=== PATIENT | male | born 1990 | race Native Hawaiian/Other Pacific Islander ===

== ENCOUNTER 2017-01-13 15:24 | Emergency (ER) | payer OTHER ==
[2017-01-13 15:30] VITALS: BP 136/87; PULSE 72; RESP 16; TEMP 96.4; O2SAT 99
--- NOTE | 2017-01-13 16:27 | ED PDOC ---
Lower Extremity Pain/Injury Time Seen by Provider: 01/13/17 16:16 Chief Complaint (Nursing): Lower Extremity Problem/Injury Chief Complaint (Provider): plantar warts History Per: Patient History/Exam Limitations: no limitations Additional Complaint(s): 26yo M in ED for eval plantar warts to b/l feet-has tried lotrimin but not effective. no pain no drainage. Past Medical History Reviewed: Historical Data, Nursing Documentation, Vital Signs Vital Signs: Last Vital Signs Temp 96.4 F L 01/13/17 15:27 Pulse 72 01/13/17 15:27 Resp 16 01/13/17 15:27 BP 136/87 01/13/17 15:27 Pulse Ox 99 01/13/17 15:27 - Medical History PMH: No Chronic Diseases - Family History Family History: States: Unknown Family Hx - Home Medications Home Medications: Ambulatory Orders Medication Instructions Recorded Meclizine [Meclizine*] 25 mg PO Q8 #15 tab 05/07/16 Salicylic Acid [Compound W] 1 - 2 gm TP DAILY #1 gel..gram. 01/13/17 Salicylic Acid [Compound W] 1 ml TP DAILY #9 liq 01/13/17 - Allergies Allergies/Adverse Reactions: Allergies Allergy/AdvReac Type Severity Reaction Status Date / Time No Known Allergies Allergy Verified 05/07/16 14:32 Review of Systems ROS Statement: Except As Marked, All Systems Reviewed And Found Negative Musculoskeletal: Positive for: Foot Pain Physical Exam - Reviewed Nursing Documentation Reviewed: Yes Vital Signs Reviewed: Yes - Physical Exam Appears: Positive for: Well, Non-toxic, No Acute Distress Skin: Positive for: Normal Color, Warm, DRY Cardiovascular/Chest: Positive for: Regular Rate, Rhythm Respiratory: Positive for: CNT, Normal Breath Sounds Extremity: Positive for: Other (foot: b/l warts noted small. ) Neurologic/Psych: Positive for: Alert, Oriented - ECG O2 Sat by Pulse Oximetry: 99 Medical Decision Making Medical Decision Making: dx: warts Rx: VErrugin and compound W freeze off with f/u with pmf Disposition - Clinical Impression Clinical Impression: Wart - Patient ED Disposition Is Patient to be Admitted: No Counseled Patient/Family Regarding: Studies Performed, Diagnosis, Need For Followup, Rx Given - Disposition Referrals: [facility] [Outside] Disposition: Routine/Home Disposition Time: 16:31 Condition: STABLE Prescriptions: Salicylic Acid [Compound W] 1 - 2 gm TP DAILY #1 gel..gram. Salicylic Acid [Compound W] 1 ml TP DAILY #9 liq Instructions: Common Wart (ED)
== END 2017-01-13 16:45 | disposition home or self-care (01) ==
LOC: H.ER 15:24
DX: B07.9 Viral wart, unspecified (principal)

== ENCOUNTER 2017-02-11 21:59 | Emergency (ER) | payer OTHER ==
[2017-02-11 22:19] VITALS: BP 151/87; PULSE 67; RESP 19; TEMP 98.3; O2SAT 100
[2017-02-11] MEDS ORDERED: Lidocaine 1% Inj (20ml) IJ ONE (22:55)
[2017-02-11] MEDS ORDERED: Lidocaine 1% Inj (20ml) ONE (23:05)
--- NOTE | 2017-02-11 23:15 | ED PDOC ---
HPI: Trauma/Fall - HPI Time Seen by Provider: 02/11/17 22:52 Chief Complaint (Nursing): Abnormal Skin Integrity Chief Complaint (Provider): Abnormal Skin Integrity History Per: Patient History/Exam Limitations: no limitations Onset/Duration Of Symptoms: Days (x1) Additional Complaint(s): Alyson Leone is a 26 year old male with no significant past medical history who presents to the ED complaining of pain to the left periorbital region and a small laceration to his left orbital rim sustained prior to arrival. Patient states he tripped at home, falling and injuring the left side of his face when his glasses broke. Denies change in vision, headache, nausea, or neck pain. Patient states his last Tetanus is unknown. PMD: Non-[facility] Provider Past Medical History Reviewed: Historical Data, Nursing Documentation, Vital Signs Vital Signs: Last Vital Signs Temp 98.3 F 02/11/17 22:15 Pulse 67 02/11/17 22:15 Resp 19 02/11/17 22:15 BP 151/87 H 02/11/17 22:15 Pulse Ox 100 02/12/17 00:26 - Medical History PMH: No Chronic Diseases - Surgical History Surgical History: No Surg Hx - Family History Family History: States: Unknown Family Hx - Immunization History Hx Tetanus Toxoid Vaccination: No - Home Medications Home Medications: Ambulatory Orders Medication Instructions Recorded Meclizine [Meclizine*] 25 mg PO Q8 #15 tab 05/07/16 Salicylic Acid [Compound W] 1 - 2 gm TP DAILY #1 gel..gram. 01/13/17 Salicylic Acid [Compound W] 1 ml TP DAILY #9 liq 01/13/17 - Allergies Allergies/Adverse Reactions: Allergies Allergy/AdvReac Type Severity Reaction Status Date / Time No Known Allergies Allergy Verified 05/07/16 14:32 Review of Systems Eyes: Negative for: Vision Change Gastrointestinal: Negative for: Nausea Musculoskeletal: Negative for: Neck Pain Neurological: Negative for: Headache, Other Physical Exam - Reviewed Nursing Documentation Reviewed: Yes Vital Signs Reviewed: Yes - Physical Exam Appears: Positive for: Well, Non-toxic, No Acute Distress Head Exam: Positive for: ATRAUMATIC, NORMAL INSPECTION, NORMOCEPHALIC Skin: Positive for: Normal Color, Warm, Dry Eye Exam: Positive for: PERRL. Negative for: Normal appearance (2 cm laceration to left orbital rim with mild ecchymosis and edema), Conjunctival injection, Other (hyphema, photophobia, injection) Neck: Positive for: Normal, Painless ROM, Supple Cardiovascular/Chest: Positive for: Regular Rate, Rhythm. Negative for: Murmur Respiratory: Positive for: Normal Breath Sounds. Negative for: Respiratory Distress Gastrointestinal/Abdominal: Positive for: Normal Exam, Bowel Sounds, Soft. Negative for: Tenderness Back: Positive for: Normal Inspection. Negative for: L CVA Tenderness, R CVA Tenderness, Vertebral Tenderness Extremity: Positive for: Normal ROM. Negative for: Pedal Edema, Deformity Neurologic/Psych: Positive for: Alert, Oriented (x3). Negative for: Motor/ Sensory Deficits - ECG O2 Sat by Pulse Oximetry: 100 (RA) Pulse Ox Interpretation: Normal Medical Decision Making Medical Decision Making: Time: 22:55 Plan: --CT Orbits/ facials w/o contrast to rule out fracture --Motrin 600 mg PO --Lidocaine 1% 4 ml IJ --Tetanus 0.5 ml IM --Laceration repair --Reevaluation Time: 23:25 --2 cm simple laceration repair completed with good result. Lidocaine 1% administered and wound irrigated. Procedure tolerated well by patient. Scribe Attestation: Documented by Bello Lucero acting as a scribe for Demetrius Chew DO. Scribe Attestation: All medical record entries made by the Scribe were at my direction and personally dictated by me. I have reviewed the chart and agree that the record accurately reflects my personal performance of the history, physical exam, medical decision making, and the department course for this patient. I have also personally directed, reviewed, and agree with the discharge instructions and disposition. Procedures - Laceration/Wound Repair Left orbital rim Wound Length (cm): 2 Anesthesia: 1% Lidocaine Wound Repaired With: Sutures Suture Size/Type: 5:0, proline Number of Sutures: 2 Wound Complexity: Simple Disposition - Clinical Impression Clinical Impression: Laceration of periorbital area, Facial trauma - Patient ED Disposition Is Patient to be Admitted: Transfer of Care - Disposition Disposition: Transfer of Care Condition: STABLE Additional Instructions: Keep wound clean and dry for 2 days, then warm soapy water 2x daily. SUTURES REQUIRE REMOVAL IN 5-6 DAYS VIA YOUR DOCTOR, URGENT CARE CENTER, OR RETURN TO ER/. Instructions: Facial Laceration (ED) Forms: [employer] (Malay) Patient Signed Over To: Niles Desir Handoff Comments: pending CT result
--- NOTE | 2017-02-12 00:26 | ED PDOC ---
- ECG O2 Sat by Pulse Oximetry: 100 (RA) Medical Decision Making Medical Decision Making: Time: 00:00 --Patient signed over to me by Dr. Demetrius Chew pending CT result 100 CT neg, patient stable for discharge. Return precautions discussed. Scribe Attestation: Documented by Bello Lucero acting as a scribe for Niles Desir MD. Scribe Attestation: All medical record entries made by the Scribe were at my direction and personally dictated by me. I have reviewed the chart and agree that the record accurately reflects my personal performance of the history, physical exam, medical decision making, and the department course for this patient. I have also personally directed, reviewed, and agree with the discharge instructions and disposition. Disposition - Clinical Impression Clinical Impression: Laceration of periorbital area, Facial trauma - POA Present On Arrival: None - Disposition Disposition: Routine/Home Disposition Time: 01:00 Condition: STABLE Additional Instructions: Keep wound clean and dry for 2 days, then warm soapy water 2x daily. SUTURES REQUIRE REMOVAL IN 5-6 DAYS VIA YOUR DOCTOR, URGENT CARE CENTER, OR RETURN TO ER/. Instructions: Facial Laceration (ED) Forms: [employer] (Welsh)
--- NOTE | 2017-02-12 01:03 | CT ---
EXAM: CT Orbits Without Intravenous Contrast EXAM DATE/TIME: 02/11/2017 10:55 PM CLINICAL HISTORY: 26 years old, male; Injury or trauma; Fall; Initial encounter; Laceration; Ocular (eye or eyeball); Left; Without residual foreign body; Injury details: Patient fell on eyeglasses, . left brow lac. ; Additional info: L eye trauma S/P fall TECHNIQUE: Axial computed tomography images of the orbits without intravenous contrast. All CT scans at this facility use one or more dose reduction techniques, viz.: automated exposure control; ma/kV adjustment per patient size (including targeted exams where dose is matched to indication; i.e. head); or iterative reconstruction technique. Coronal and sagittal reformatted images were created and reviewed. COMPARISON: There are no prior studies for comparison. FINDINGS: Soft tissues: There is left periorbital and frontal bruising and hematoma. There is laceration with air in the soft tissues. There is minimal left periorbital edema. Orbits: Globes are intact.Retrobulbar structures are symmetric. Bones/joints: There are no facial bone fractures. There are no orbital fractures. Visualized cervical spine is unremarkable Sinuses: There is minimal mucoperiosteal thickening in right frontal and ethmoid sinuses. Ostiomeatal complexes are patent bilaterally. Maxillary and sphenoid sinuses are unremarkable. Ears and mastoids: Middle ears and mastoids are unremarkable. Salivary glands: Parotid and submandibular glands are unremarkable. Lymph nodes: There is shotty adenopathy. Brain: No focal abnormalities are seen in visualized portion of the brain. Airway: Airway is unremarkable. IMPRESSION: Left facial and periorbital bruising and laceration, intact globe, no fracture Additional findings as described above.
== END 2017-02-12 01:15 | disposition home or self-care (01) ==
LOC: H.ER 21:59
DX: S01.81XA Laceration without foreign body of other part of head, initial encounter (principal); W01.0XXA Fall on same level from slipping, tripping and stumbling without subsequent striking against object, initial encounter

== ENCOUNTER 2017-02-17 14:20 | Emergency (ER) | payer OTHER ==
[2017-02-17 15:13] VITALS: BP 127/80; PULSE 61; RESP 16; TEMP 97.8; O2SAT 96
--- NOTE | 2017-02-17 15:38 | ED PDOC ---
HPI: Wound Care - HPI Time Seen by Provider: 02/17/17 15:30 Chief Complaint (Nursing): Suture/Staple Removal Chief Complaint (Provider): Suture/Staple Removal History Per: Patient Exam Limitations: no limitations Additional Complaint(s): Alyson Leone is a 26 year old male that presents to the ED for suture removal. Patient denies any drainage from the area or any additional complaints. Past Medical History Reviewed: Historical Data, Nursing Documentation, Vital Signs Vital Signs: Last Vital Signs Temp 97.8 F 02/17/17 15:11 Pulse 61 02/17/17 15:11 Resp 16 02/17/17 15:11 BP 127/80 02/17/17 15:11 Pulse Ox 96 02/17/17 15:11 - Family History Family History: States: Unknown Family Hx - Immunization History Hx Tetanus Toxoid Vaccination: No - Home Medications Home Medications: Ambulatory Orders Medication Instructions Recorded Meclizine [Meclizine*] 25 mg PO Q8 #15 tab 05/07/16 Salicylic Acid [Compound W] 1 - 2 gm TP DAILY #1 gel..gram. 01/13/17 Salicylic Acid [Compound W] 1 ml TP DAILY #9 liq 01/13/17 - Allergies Allergies/Adverse Reactions: Allergies Allergy/AdvReac Type Severity Reaction Status Date / Time No Known Allergies Allergy Verified 02/17/17 15:10 Review of Systems ROS Statement: Except As Marked, All Systems Reviewed And Found Negative Constitutional: Positive for: Other (suture removal from left periorbital area) Physical Exam - Reviewed Nursing Documentation Reviewed: Yes Vital Signs Reviewed: Yes - Physical Exam Appears: Positive for: Non-toxic, No Acute Distress Head Exam: Positive for: ATRAUMATIC (Sutures present to left periorbital area), NORMOCEPHALIC Skin: Positive for: Normal Color, Warm Eye Exam: Positive for: EOMI, PERRL. Negative for: Normal appearance ( Ecchymosis to left eye, but is healing well.) Neurologic/Psych: Positive for: Alert, Oriented. Negative for: Motor/Sensory Deficits - ECG O2 Sat by Pulse Oximetry: 96 (RA) Pulse Ox Interpretation: Normal Medical Decision Making Medical Decision Making: Impression: Suture Removal Plan: * Suture Removal Patient tolerated suture removal well, with no immediate complications. Advised patient to place sunscreen and Vitamin E over area to reduce appearance of scarring. Stable for discharge home. Scribe Attestation: Documented by Elva Felix, acting as a scribe for Stewart Gomez PA-C. Provider Scribe Attestation: All medical record entries made by the Scribe were at my direction and personally dictated by me. I have reviewed the chart and agree that the record accurately reflects my personal performance of the history, physical exam, medical decision making, and the department course for this patient. I have also personally directed, reviewed, and agree with the discharge instructions and disposition. Disposition - Clinical Impression Clinical Impression: Removal of suture - Patient ED Disposition Is Patient to be Admitted: No - Disposition Referrals: [facility] [Outside] Disposition: Routine/Home Disposition Time: 15:46 Condition: FAIR Instructions: Stitches Removal (ED) Forms: [employer] (Uzbek)
== END 2017-02-17 16:13 | disposition home or self-care (01) ==
LOC: H.ER 14:20
DX: Z48.02 Encounter for removal of sutures (principal)

== ENCOUNTER 2017-03-18 00:28 | Emergency (ER) | payer OTHER ==
[2017-03-18 00:54] VITALS: RESP 18
[2017-03-18 01:07] VITALS: BP 114/64; PULSE 113; O2SAT 98
[2017-03-18 01:24] VITALS: TEMP 101
--- NOTE | 2017-03-18 01:38 | ED PDOC ---
HPI: General Adult Time Seen by Provider: 03/18/17 00:51 Chief Complaint (Nursing): Flu-like Symptoms Chief Complaint (Provider): Flu-like Symptoms History Per: Patient History/Exam Limitations: no limitations Onset/Duration Of Symptoms: Days (x1) Current Symptoms Are (Timing): Still Present Additional Complaint(s): 26 year old [place]ian male with no significant past medical history, who presents to the ED complaining of intermittent fever x1 day. Patient also reports body aches, headache, and generalized weakness. States his girlfriend is suffering from similar symptoms. Reports he recently traveled to [place]. Denies vomiting or diarrhea. States he is drinking fluids. PMD: None provided Past Medical History Reviewed: Historical Data, Nursing Documentation, Vital Signs Vital Signs: Last Vital Signs Temp 101 F H 03/18/17 00:51 Pulse 113 H 03/18/17 00:51 Resp 18 03/18/17 00:51 BP 114/64 03/18/17 00:51 Pulse Ox 98 03/18/17 00:51 - Medical History PMH: No Chronic Diseases - Surgical History Surgical History: No Surg Hx - Family History Family History: States: Unknown Family Hx - Social History Current smoker - smoking cessation education provided: No Alcohol: None Drugs: Denies - Immunization History Hx Tetanus Toxoid Vaccination: No - Home Medications Home Medications: Ambulatory Orders Medication Instructions Recorded Meclizine [Meclizine*] 25 mg PO Q8 #15 tab 05/07/16 Salicylic Acid [Compound W] 1 - 2 gm TP DAILY #1 gel..gram. 01/13/17 Salicylic Acid [Compound W] 1 ml TP DAILY #9 liq 01/13/17 Oseltamivir [Tamiflu] 75 mg PO BID #10 cap 03/18/17 - Allergies Allergies/Adverse Reactions: Allergies Allergy/AdvReac Type Severity Reaction Status Date / Time No Known Allergies Allergy Verified 03/18/17 00:54 Review of Systems ROS Statement: Except As Marked, All Systems Reviewed And Found Negative Constitutional: Positive for: Fever (intermittent), Weakness Gastrointestinal: Negative for: Vomiting, Diarrhea Musculoskeletal: Positive for: Other (body aches) Physical Exam - Reviewed Nursing Documentation Reviewed: Yes Vital Signs Reviewed: Yes - Physical Exam Appears: Positive for: Non-toxic, No Acute Distress (patient appears febrile) Head Exam: Positive for: ATRAUMATIC, NORMAL INSPECTION, NORMOCEPHALIC Skin: Positive for: Normal Color, Warm, Dry. Negative for: Rash Eye Exam: Positive for: EOMI, Normal appearance, PERRL Neck: Positive for: Normal, Painless ROM, Supple Cardiovascular/Chest: Positive for: Tachycardia. Negative for: Murmur Respiratory: Positive for: Normal Breath Sounds. Negative for: Respiratory Distress Gastrointestinal/Abdominal: Positive for: Normal Exam, Bowel Sounds, Soft. Negative for: Tenderness Back: Positive for: Normal Inspection. Negative for: L CVA Tenderness, R CVA Tenderness, Vertebral Tenderness Extremity: Positive for: Normal ROM. Negative for: Pedal Edema, Deformity Neurologic/Psych: Positive for: Alert, Oriented (x3). Negative for: Motor/ Sensory Deficits - ECG O2 Sat by Pulse Oximetry: 98 (RA) Pulse Ox Interpretation: Normal Medical Decision Making Medical Decision Making: Time: 01:21 Initial Impression: 26 year old male with clinical influenza Plan: --Tamiflu 75 mg PO --Patient is medically stable, and requires no further treatment in the ED at this time. Patient will be discharged with Rx for Tamiflu. Counseling was provided and all questions were answered regarding diagnosis and need for follow up with PMD. There is agreement to discharge plan. Return if symptoms persist or worsen. Scribe Attestation: Documented by Bello Lucero, acting as a scribe for Alphonso Smalls MD. Provider Scribe Attestation: All medical record entries made by the Scribe were at my direction and personally dictated by me. I have reviewed the chart and agree that the record accurately reflects my personal performance of the history, physical exam, medical decision making, and the department course for this patient. I have also personally directed, reviewed, and agree with the discharge instructions and disposition. Disposition - Clinical Impression Clinical Impression: Influenza - Patient ED Disposition Is Patient to be Admitted: No Counseled Patient/Family Regarding: Diagnosis, Need For Followup, Rx Given - Disposition Disposition: Routine/Home Disposition Time: 01:21 Condition: STABLE Prescriptions: Oseltamivir [Tamiflu] 75 mg PO BID #10 cap Instructions: Influenza (ED) Forms: [employer] (Nepali)
== END 2017-03-18 01:34 | disposition home or self-care (01) ==
LOC: H.ER 00:28
DX: J11.1 Influenza due to unidentified influenza virus with other respiratory manifestations (principal)